=== PATIENT | female | born 1995 | race Two or more races ===

== ENCOUNTER 2017-05-14 21:08 | Emergency (ER) | payer MEDICAID ==
[~2017-05-14] VITALS: Ht 152.4 cm; Wt 54.4 kg
--- NOTE | 2017-05-14 21:46 | NUR ---
COCO HURLEY AT BEDSIDE FOR EVAL.
--- NOTE | 2017-05-14 21:46 | NUR ---
PT AMBULATORY W/ TO ER BED 10. C/O THROAT PAIN/DISCOMFORT S/P DINNER. STATES ATE RICE AND FALLAFEL AND FEELS LIKE A FORIEGN BODY IS STUCK. PT IS SPEAKING IN FULL SENTENCES. SATTING FINE ON ROOM AIR. AWAITING MD CHARLES.
--- NOTE | 2017-05-14 22:10 | NUR ---
PT TO RADIOLOGY FOR NECK XRAY.
[2017-05-14] MEDS ORDERED: TETRACAINE/BENZOCAINE/BUTAMBEN 56 GM SPRAY TP ONE ×2 (22:57→23:00)
--- NOTE | 2017-05-14 23:05 | NUR ---
COCO FILTER TIP CATCHER BACK AT BEDSIDE, SPLINTER FROM PT'S THROAT SUCCESSFULLY TAKEN OUT. PT STATES FEELING MUCH BETTER.
--- NOTE | 2017-05-14 23:20 | NUR ---
Patient discharged to home in stable condition. Written and verbal after care instructions given. Patient verbalizes understanding of instruction.
[2017-05-14 23:22] VITALS: BP 125/77
== END 2017-05-14 23:23 | disposition home or self-care (01) ==
LOC: ER 21:10
DX: T17.228A Food in pharynx causing other injury, initial encounter (principal); F10.10 Alcohol abuse, uncomplicated; X58.XXXA Exposure to other specified factors, initial encounter; Y93.89 Activity, other specified; Y92.89 Other specified places as the place of occurrence of the external cause; Y99.9 Unspecified external cause status
CPT/HCPCS: 42809; 70360; 99284; A4606; Z7610